=== PATIENT | female | born 1995 | race Caucasian/White ===

== ENCOUNTER 2019-08-31 21:38 | Emergency (ER) | payer OTHER ==
[~2019-08-31] VITALS: Ht 157.5 cm; Wt 68.0 kg
[2019-08-31 21:50] VITALS: Ht 157.5 cm; Wt 68.0 kg
--- NOTE | 2019-08-31 22:51 | NUR ---
PT CAME TO ED FOR C/O R FLANK PAIN 10/10 SHARP PAIN BEGAN YESTERDAY. PT STATES SHE NEVER FELT THIS BEFORE. PT IS AAOX4, FACIAL GRIMACING NOTED. PT ON CM, VSS. LUNGS CLEAR BILAT, E/U BREATHING. PT REQUESTING MEDS. SIGN NOTIFIED. WAITING MSE. WILL CONTINUE TO MONITOR PT AT THSI TIME.
--- NOTE | 2019-08-31 23:02 | NUR ---
MD GRISSOM AT [facility] FOR MSE
[2019-09-01 00:32] LABS: PLATELET COUNT 257 x10^3mcL (130-400)
[2019-09-01 00:33] LABS: BASOPHIL % 0 % (0-2)
[2019-09-01 00:34] LABS: ALBUMIN 3.7 g/dL (3.4-5.0); ALKALINE PHOSPHATASE 84 U/L (46-116); ALT/SGPT 20 U/L (14-59); AST/SGOT 19 U/L (15-37); BILIRUBIN TOTAL 0.3 mg/dL (0.20-1.00); CALCIUM 8.7 mg/dL (8.5-10.1); CARBON DIOXIDE 28.9 mmol/L (21-32); CHLORIDE SERUM 102 mmol/L (98-107); GFR1 > 60 mL/min; GLUCOSE SERUM 118 mg/dL (74-106); LIPASE 98 IU/L (73-393); POTASSIUM SERUM 3.8 mmol/L (3.5-5.1); SODIUM SERUM 139 mmol/L (136-145); TOTAL PROTEIN, SERUM 7.8 g/dL (6.4-8.2)
--- NOTE | 2019-09-01 00:50 | NUR ---
PT IN BED AWAKE, REQUESTING MORE PAIN MNEDS BECAUSE PAIN UIS INCREASING TO 5/10 AGAIN. MD GRISSOM NOTIFIED, WAITING FOR ORDERS.
--- NOTE | 2019-09-01 01:38 | NUR ---
MEEICATED PT PER ORDERS, SEE EMAR FOR DETAILS.
--- NOTE | 2019-09-01 02:40 | NUR ---
PT REQUESTING TO GET ADMITTED D/T PAIN. PER MD GRISSOM HE WILL ADMIT PT.
[2019-09-01 03:20] VITALS: BP 115/88
== END 2019-09-01 03:20 | disposition home or self-care (01) ==
LOC: ED 21:38 → MU 09-01 02:50 → ED 09-01 02:50
PROVIDERS: Emergency Medicine
DX: N20.0 Calculus of kidney (principal)
CPT/HCPCS: J1885; J2270; J2405; J3010; Q0092